=== PATIENT | male | born 1960 | race Two or more races ===

== ENCOUNTER 2023-10-02 08:07 | Emergency (ER) | payer MEDICAID, OTHER ==
[~2023-10-02] VITALS: Ht 165.1 cm; Wt 78.2 kg
[2023-10-02] MEDS ORDERED: LISI20TA60 PO (10:48)
[2023-10-02 11:46] VITALS: BP 127/74; PULSE 84; RESP 17; TEMP 98.2; O2SAT 97
== END 2023-10-02 11:48 | disposition home or self-care (01) ==
LOC: ER 08:07
DX: R10.33 Periumbilical pain (principal); K42.9 Umbilical hernia without obstruction or gangrene; E11.9 Type 2 diabetes mellitus without complications; I10 Essential (primary) hypertension; Z76.0 Encounter for issue of repeat prescription; Z88.0 Allergy status to penicillin